=== PATIENT | female | born 1980 | race Caucasian/White ===

== ENCOUNTER 2016-11-26 16:46 | Emergency (ER) | payer MEDICAID ==
[2016-11-26] MEDS ORDERED: ONDANSETRON 4 MG VIAL ONE (18:06)
[2016-11-26] MEDS ORDERED: KETOROLAC 30 MG/ML VIAL ONE (18:07)
[2016-11-26] MEDS ORDERED: SODIUM CHLORIDE 0.9% 1,000 ML ONE (18:07)
== END 2016-11-26 19:31 | disposition home or self-care (01) ==
LOC: ER 16:46
DX: R10.33 Periumbilical pain (principal); N39.0 Urinary tract infection, site not specified; R11.2 Nausea with vomiting, unspecified
CPT/HCPCS: 36415; 80053; 81001; 83690; 84703; 85025; 87077; 87088; 87186; 96361; 96374; 96375